=== PATIENT | female | born 1960 | race Caucasian/White ===

== ENCOUNTER 2023-01-25 12:05 | Outpatient (REF) | payer BC, SELFPAY ==
--- NOTE | ~2023-01-25 | XR_ITS ---
EXAMINATION: XR CHEST CLINICAL INFORMATION: Cough, unspecified COMPARISON: May 2019. TECHNIQUE: 2 views of the chest were obtained. FINDINGS: No significant abnormality is noted involving the heart, lungs, mediastinum, bony thorax or soft tissues. XR/XR chest 2V IMPRESSION: Unremarkable examination.
[2023-01-25 14:15] LABS: Hematocrit 41.3 % (37.0-47.0); Hemoglobin 13.6 g/dl (12.0-16.0); Mean Corpuscular HGB Conc 32.9 g/dl (31.0-35.0); Mean Corpuscular Hemoglobin 29.4 pg (27.0-33.0); Mean Corpuscular Volume 89.4 fL (80.0-98.0); Platelet Count 272 X10*3/uL (160-400); Red Blood Count 4.62 X10*6/uL (4.20-5.50); Red Cell Distribution Width 12.6 % (11.0-16.0); White Blood Count 6.1 X10*3/uL (4.8-10.8)
[2023-01-25 14:34] LABS: Alanine Aminotransferase 17 U/L (0-31); Albumin Level 4.5 g/dL (3.5-5.0); Alkaline Phosphatase 80 U/L (39-117); Anion Gap 14 (12-20); Aspartate Amino Transferase 18 U/L (5-31); Bilirubin Direct 0.1 mg/dL (0.0-0.5); Bilirubin Total 0.6 mg/dL (0.0-1.0); Blood Urea Nitrogen 15 mg/dL (9-16); Calcium 10.3 mg/dL (8.4-10.2); Carbon Dioxide 25 mmol/L (22-29); Chloride 106 mmol/L (96-108); Estimated Glomerular Filt Rate > 60; Glucose Random 96 mg/dL (60-115); Potassium 4.7 mmol/L (3.3-5.1); Sodium 140 mmol/L (135-145); Total Protein 7.5 g/dL (6.5-8.0)
[2023-01-25 14:36] LABS: Estimated Average Glucose 108 mg/dL; Hemoglobin A1C 129.4757 umol/L; Hemoglobin A1c % 5.4 %
== END 2023-01-25 12:06 | disposition home or self-care (01) ==
LOC: HO.HMGCX 12:05
PROVIDERS: PCP Internal Medicine Endocrinology, Diabetes & Metabolism; Visit Provider Internal Medicine
DX: R05.9 Cough, unspecified (principal)
CPT/HCPCS: 36415; 71046; 80048; 80076; 83036; 85027

== ENCOUNTER 2023-04-10 13:28 | Outpatient (AMB) | payer BC, SELFPAY ==
--- NOTE | 2023-04-10 13:25 | AM.OFFWIN_ITS ---
Intake Vital Signs 04/10/23 13:33 Weight 73.482 kg BP 138/56 L Blood Pressure Location Rt brachial Position Sitting Temp 98.1 F Temp Source Oral Pulse Oximetry (%) 98 Oxygen Delivery Method Room Air Intake Visit Reasons: JUDICIAL ASSISTANT/bug bites Intake Note: Pt has noticed some redness and itchiness on her stomach and into her groin. Went camping 9 days ago and noticed the rash then. Allergies ciprofloxacin [Cipro] Adverse Reaction (Unknown, Verified 04/10/23 13:33) Back Pain HPI HPI Comments History of Present Illness Details 1401 62 year old female presents w/ itchy bennie h throughout body X 9 days present after gardening and camping. Reports it hurts and itches a lot. Has come in contact w/ multiple plants unclear if bug bites. No CP, SOB, nausea, vomiting, abd pain, SCHMITT, dizziness, joint pain. No one around here with similar rash PE w/ urticaria and macules and papules on errythematous base to upper extremities b/l , lower extremities b/l, L groin region, below b/l breasts, back w/ ac excoriations concerns for contact dermatitis, allergic reaction, tick born ilnesses. No signs of ostea, erysipleas, sepsis, gangrene, fourniers, necrosis plan- atbx, steroids. Educated patient on diagnosis and treatment plan, answe red all question, patient verbalizes understanding. At this time patient will be discharged home, advised to return with new or worsening symptoms. Educated on worrisome signs and symptoms and when to return. At this time I feel comfortable discharge home. Review of Systems Const Details: Constitutional : No Weight loss, No Fever, No Chills, No Fatigue, No Malaise ENT/Mouth : No sore throat, No Rhinorrhea Eyes: No Eye Pain, No Swelling, No Redness Cardiovascular : No Chest Pain, No SOB, No Dyspnea on Exertion, No Orthopnea, No Edema, No Palpitations Respiratory : No Cough, No Sputum, No Wheezing Gastrointestinal : No Nausea, No Vomiting, No Diarrhea, No Constipation, No abdominal Pain, No Hematochezia, No Melena Genitourinary : No Dysuria, No Urinary Frequency, No Hematuria, Musculoskeletal : No joint pain, No Myalgias, No Joint Swelling Skin : No Skin Lesions, + rash Neuro : No Weakness, No Numbness, No Dizziness, No Headache Psych : No Anxiety/Panic, No Depression All other systems reviewed and are negative All systems reviewed & are unremarkable except as noted in HPI and below Physical Exam Vital Signs: Last Vital Signs Temp 98.1 F 04/10/23 13:33 BP 138/56 L 04/10/23 13:33 Pulse Ox 98 04/10/23 13:33 Oxygen Delivery Method Room Air 04/10/23 13:33 vss Appearance: Alert.? Oriented X3.? No acute distress.? Head: Normocephalic, atraumatic, no step-offs or deformities Eyes: Pupils equal, round and reactive to light.? ENT: Pharynx normal.??External ears normal, TMs normal bilaterally and EAC's normal. No pain with manipulation of external ears bilaterally. No mastoid tenderness. Neck: Normal inspection.? Neck supple.? CVS: Normal heart rate and rhythm.? Pulses normal.? Respiratory: No respiratory distress.? Breath sounds normal.? Abdomen: Soft and nontender.? Skin: Skin warm and dry.? Normal skin color.? Normal skin turgor.? + urticaria and macules and papules on errythematous base to upper extremities b/l , lower extremities b/l, L groin region, below b/l breasts, back w/ ac excoriations Back: No midline tenderness, no C-spine tenderness, full range of motion, no CVA tenderness bilaterally Neuro: Oriented X 3.? No motor deficit.? No sensory deficit. CN 2-12 intact Assessment & Plan Assessment & Plan (1) Contact dermatitis: Code(s): L25.9 - Unspecified contact dermatitis, unspecified cause (2) Cellulitis: Code(s): L03.90 - Cellulitis, unspecified Plan Take your medications as prescribed. If you were prescribed antibiotics today, it is important that you take your medication to their entirety, do not skip any doses, do not finish them early. Follow-up with your primary care provider this week. Return to the emergency department with new or worsening symptoms. Such as fevers, chills, chest pain, shortness of breath, nausea, vomiting, dizziness, he adache, vision changes, lethargy In case of emergency call 911 Orders: Orders Lyme IgG/IgM w/reflex to WB Today L25.9 - Unspecified contact dermatitis, unspecified cause Tick-borne Disease Molecular Today L25.9 - Unspecified contact dermatitis, unspecified cause Medications: New cephalexin 500 mg PO QID 7 days 28 caps 0RF prednisone 60 mg (3 x 20 mg) PO DAILY 5 days 15 tabs 0RF hydroxyzine HCl 25 mg PO BID PRN 14 tabs 0RF itching Coding Level of Care Code Est Pt Level 3 (01510) Diagnoses Contact dermatitis L25.9 Cellulitis L03.90
[2023-04-10 13:33] VITALS: BP 138/56; TEMP 36.7; O2SAT 98
== END 2023-04-10 14:16 | disposition home or self-care (01) ==
PROVIDERS: Visit Provider Physician Assistant
DX: L25.9 Unspecified contact dermatitis, unspecified cause (principal); L03.90 Cellulitis, unspecified
CPT/HCPCS: 99213

== ENCOUNTER 2023-04-10 14:03 | Outpatient (REF) | payer BC, SELFPAY ==
[2023-04-12 19:48] LABS: Lyme Abs Screen <0.90 index
[2023-04-12 22:39] LABS: A. Phagocytphilium DNA,RT-PCR NOT DETECTED (NOT DETECTED); Babesia Microti DNA, RT-PCR NOT DETECTED (NOT DETECTED); Borrelia Miyamotoi,DNA RT-PCR NOT DETECTED (NOT DETECTED); E.Chaffeensis DNA RT-PCR NOT DETECTED (NOT DETECTED); Lyme(Borrelia ssp)DNA RT-PCR NOT DETECTED (NOT DETECTED)
== END 2023-04-10 14:04 | disposition home or self-care (01) ==
LOC: HO.HMGCLDS 14:03
PROVIDERS: PCP Internal Medicine Endocrinology, Diabetes & Metabolism; Visit Provider Physician Assistant
DX: L25.9 Unspecified contact dermatitis, unspecified cause (principal)
CPT/HCPCS: 36415; 86617; 86618; 87468; 87469; 87478; 87484; 87798

== ENCOUNTER 2023-11-29 12:54 | Outpatient (AMB) | payer BC, SELFPAY ==
--- NOTE | 2023-11-29 14:27 | MHC.OFFWIV ---
Intake Vital Signs 11/29/23 14:29 Height 5 ft 7 in Weight 156 lb 6 oz BMI 24.5 BP 114/62 Blood Pressure Location Rt brachial Position Sitting Pulse 81 Pulse Source Pulse Oximeter Temp 98.1 F Temp Source Temporal Artery Scan Pulse Oximetry (%) 97 Oxygen Delivery Method Room Air Intake Visit Reasons: EP tick bite rt side [phone] Intake Note: Pt presents to the office today for c/o a tick bite on her right side of her ribs. She states she had a burning feeling this morning and noticed the tick imbedded in her. She states she tried getting it out but isnt sure if she got all of it out. Patient Tobacco Use Status: Never used Tobacco Allergies ciprofloxacin [From Cipro] Allergy (Mild, Verified 11/29/23 14:43) Unknown Medication List - Last Reconciled 11/29/23 by Layo Reaves MD azelastine 2 sprays intranasal BID doxycycline hyclate 100 mg PO BID 1 day duloxetine 60 mg PO DAILY estradiol 0 mcg vaginal flu vacc [id number] 6mos up(PF) mL IM levothyroxine 100 mcg PO DAILY lorazepam 0.5 mg PO DAILY HPI EP tick bite rt side [phone] HPI Details 63 yr old female presents to the office for a sick visit. Noticed a tick bite on the right side of her chest. PFSH Social History (Reviewed 11/29/23 @ 14:32 by Natasha Do [facility]) Patient Tobacco Use Status: Never used Tobacco Physical Exam Vital Signs: Last Vital Signs Temp 98.1 F 11/29/23 14:29 Pulse 81 11/29/23 14:29 BP 114/62 11/29/23 14:29 Pulse Ox 97 11/29/23 14:29 Oxygen Delivery Method Room Air 11/29/23 14:29 BMI result Body Mass Index 24.5 Skin Other: Small erythematous area at the site of the bite. Assessment & Plan Assessment & Plan (1) Tick bite: Code(s): W57.XXXA - Bitten or stung by nonvenomous insect and other nonvenomous arthropods, initial encounter Plan: Reassurance. Signs and Symptoms of lyme disease explained. One dose of doxycycline prescribed. Orders: Orders Lyme IgG/IgM w/reflex to WB 3 Weeks W57.XXXA - Bitten or stung by nonvenomous insect and other nonvenomous arthropods, initial encounter Medications: New doxycycline hyclate 100 mg PO BID 2 caps 0RF 1 day Coding Level of Care Code Est Pt Level 3 (94464) Diagnoses Tick bite W57.XXXA
[2023-11-29 14:29] VITALS: BP 114/62; PULSE 81; TEMP 36.7; O2SAT 97; BMI 24.5
== END 2023-11-29 14:48 | disposition home or self-care (01) ==
PROVIDERS: PCP Internal Medicine Endocrinology, Diabetes & Metabolism; Visit Provider Internal Medicine
DX: T63.481A Toxic effect of venom of other arthropod, accidental (unintentional), initial encounter (principal)
CPT/HCPCS: 99213